=== PATIENT | female | born 1950 | race Caucasian/White ===

== ENCOUNTER 2017-09-14 12:14 | Inpatient (IN) | payer BC, MEDICARE, OTHER ==
[2017-09-14] MEDS: IOHEXOL 300 MG/ML 100ML VIAL. IV (12:45)
[2017-09-14 12:52] LABS: BILIRUBIN,URINE NEGATIVE (NEG); CLARITY,URINE CLEAR; COLOR,URINE YELLOW; GLUCOSE,URINE NEGATIVE (NEG); NITRITE,URINE NEGATIVE (NEG); PH,URINE 7.5; PROTEIN,URINE NEGATIVE (NEG-TRACE); UROBILINOGEN,URINE 0.2 mg/dL (0.2 mg/dL)
[2017-09-14 12:57] LABS: ADD MAN DIFF? NO
[2017-09-14] MEDS: IV NORMAL SALINE 1000ML BAG 1,000 ML IV ×3 (12:58→20:40)
[2017-09-14] MEDS ORDERED: CONTRAST GIVEN MC (13:00)
[2017-09-14 13:02] LABS: BACTERIA,URINE 0 /HPF (0-FEW); BASO # 0.1 x10^3/uL (0.0-0.2); BASO % 0 % (0-3); EOS % 0 % (0-3); HEMATOCRIT 43.3 % (36.0-47.0); HEMOGLOBIN 14.2 g/dL (12.0-15.5); LYMPH # 1.8 x10^3/uL (1.0-4.8); LYMPH % 12 % (24-48); MEAN CORPUSCULAR HEMOGLOBIN 27 pg (25-35); MEAN CORPUSCULAR HGB CONC 33 g/dL (31-37); MEAN CORPUSCULAR VOLUME 82 fL (79-100); MONO # 1.3 x10^3/uL (0.0-1.1); MONO % 8 % (0-9); NEUT # 12.4 x10^3uL (1.8-7.7); NEUT % 80 % (31-73); PLATELET COUNT 287 x10^3/uL (140-400); RBC,URINE 0 /HPF (0-2); RED BLOOD COUNT 5.28 x10^6/uL (3.50-5.40); RED CELL DISTRIBUTION WIDTH 13.5 % (11.5-14.5); SQUAMOUS EPITHELIAL CELL,UR FEW /LPF; WBC,URINE OCC /HPF (0-4); WHITE BLOOD COUNT 15.5 x10^3/uL (4.0-11.0)
[2017-09-14 13:09] LABS: ANION GAP 9 (6-14); BLOOD UREA NITROGEN 16 mg/dL (7-20); BUN/CREATININE RATIO 20 (6-20); CALCIUM 9.2 mg/dL (8.5-10.1); CARBON DIOXIDE 27 mmol/L (21-32); CHLORIDE 103 mmol/L (98-107); CREATININE 0.8 mg/dL (0.6-1.0); GFR 71.8; GLUCOSE 129 mg/dL (70-99); POTASSIUM 3.4 mmol/L (3.5-5.1); SODIUM 139 mmol/L (136-145)
[2017-09-14 13:14] LABS: ALBUMIN 3.6 g/dL (3.4-5.0); ALK PHOS 126 U/L (46-116); ALT (SGPT) 27 U/L (14-59); AST (SGOT) 23 U/L (15-37); LIPASE 58 U/L (73-393); TOTAL BILIRUBIN 0.7 mg/dL (0.2-1.0); TOTAL PROTEIN 7.2 g/dL (6.4-8.2)
[2017-09-14 14:00] LABS: TROPONINI < 0.017 ng/mL (0.000-0.055)
[2017-09-14] MEDS ORDERED: fentaNYL PF VIAL 100 MCG/2 ML VIAL IV (14:45)
[2017-09-14] MEDS ORDERED: ONDANSETRON PF 4 MG/2 ML VIAL. IV (14:45)
[2017-09-14] MEDS: CIPROFLOXACIN 400MG PREMIX 200 ML IV (15:13)
[2017-09-14] MEDS: RIVAROXABAN 10 MG TABLET. PO (16:36)
[2017-09-14] MEDS: ACETAMINOPHEN 325 MG TABLET. PO ×3 (16:42→23:23)
[2017-09-14] MEDS: PIPERACILLIN/TAZOBACTAM 3.375 GM in IV NORMAL SALINE 50ML 50 ML IV ×2 (18:13→23:23)
[2017-09-14] MEDS: FLECAINIDE ACETATE 50 MG TABLET. PO (20:39)
[2017-09-15 05:17] LABS: BASO % 0 % (0-3); EOS % 0 % (0-3); HEMATOCRIT 39.7 % (36.0-47.0); HEMOGLOBIN 12.9 g/dL (12.0-15.5); LYMPH # 1.7 x10^3/uL (1.0-4.8); LYMPH % 10 % (24-48); MEAN CORPUSCULAR HEMOGLOBIN 27 pg (25-35); MEAN CORPUSCULAR HGB CONC 33 g/dL (31-37); MEAN CORPUSCULAR VOLUME 83 fL (79-100); MONO # 1.2 x10^3/uL (0.0-1.1); MONO % 7 % (0-9); NEUT # 14.1 x10^3uL (1.8-7.7); NEUT % 83 % (31-73); PLATELET COUNT 262 x10^3/uL (140-400); RED BLOOD COUNT 4.82 x10^6/uL (3.50-5.40); RED CELL DISTRIBUTION WIDTH 13.4 % (11.5-14.5); WHITE BLOOD COUNT 17.1 x10^3/uL (4.0-11.0)
[2017-09-15 05:29] LABS: ADD MAN DIFF? YES
[2017-09-15] MEDS: IV NORMAL SALINE 1000ML BAG 1,000 ML IV (05:41)
[2017-09-15] MEDS: PIPERACILLIN/TAZOBACTAM 3.375 GM in IV NORMAL SALINE 50ML 50 ML IV ×4 (05:41→23:46)
[2017-09-15] MEDS: ACETAMINOPHEN 325 MG TABLET. PO ×4 (05:43→21:48)
[2017-09-15 09:19] LABS: % BANDS 3 % (0-9); % LYMPHS 22 % (24-48); % MONOS 3 % (0-10); % SEGS 72 % (35-66); PLT ESTIMATE ADEQUATE (ADEQUATE)
[2017-09-15] MEDS: POTASSIUM CHLORIDE 20 MEQ TABLET.ER. PO (10:00)
[2017-09-15] MEDS: FLECAINIDE ACETATE 50 MG TABLET. PO ×2 (10:02→21:00)
[2017-09-15] MEDS: POTASSIUM CL 20MEQ D5-0.45NACL 1,000 ML IV ×2 (10:15→20:00)
[2017-09-15] MEDS: LACTOBACILLUS RHAMNOSUS GG 1 CAPSULE. PO ×2 (11:26→21:00)
[2017-09-15] MEDS: ANTI-COAG MONITOR BY PHARMACY. MC (13:59)
[2017-09-15] MEDS: RIVAROXABAN 10 MG TABLET. PO (17:12)
[2017-09-16] MEDS: ACETAMINOPHEN 325 MG TABLET. PO ×3 (03:54→17:51)
[2017-09-16] MEDS: PIPERACILLIN/TAZOBACTAM 3.375 GM in IV NORMAL SALINE 50ML 50 ML IV ×3 (06:29→17:55)
[2017-09-16 07:03] LABS: HEMATOCRIT 38.2 % (36.0-47.0); HEMOGLOBIN 12.5 g/dL (12.0-15.5); MEAN CORPUSCULAR HEMOGLOBIN 27 pg (25-35); MEAN CORPUSCULAR HGB CONC 33 g/dL (31-37); MEAN CORPUSCULAR VOLUME 83 fL (79-100); PLATELET COUNT 253 x10^3/uL (140-400); RED BLOOD COUNT 4.61 x10^6/uL (3.50-5.40); RED CELL DISTRIBUTION WIDTH 13.7 % (11.5-14.5); WHITE BLOOD COUNT 14.6 x10^3/uL (4.0-11.0)
[2017-09-16 07:17] LABS: ANION GAP 9 (6-14); BLOOD UREA NITROGEN 6 mg/dL (7-20); CALCIUM 8.6 mg/dL (8.5-10.1); CARBON DIOXIDE 25 mmol/L (21-32); CHLORIDE 109 mmol/L (98-107); CREATININE 0.8 mg/dL (0.6-1.0); GFR 71.8; GLUCOSE 119 mg/dL (70-99); POTASSIUM 3.3 mmol/L (3.5-5.1); SODIUM 143 mmol/L (136-145)
[2017-09-16] MEDS: LACTOBACILLUS RHAMNOSUS GG 1 CAPSULE. PO ×2 (10:18→21:41)
[2017-09-16] MEDS: POTASSIUM CL 20MEQ D5-0.45NACL 1,000 ML IV (10:18)
[2017-09-16] MEDS: FLECAINIDE ACETATE 50 MG TABLET. PO ×2 (10:19→21:38)
[2017-09-16] MEDS: ANTI-COAG MONITOR BY PHARMACY. MC (11:57)
[2017-09-16] MEDS: RIVAROXABAN 10 MG TABLET. PO (17:52)
[2017-09-16] MEDS: POTASSIUM CHLORIDE 20 MEQ TABLET.ER. PO (17:53)
[2017-09-17] MEDS: PIPERACILLIN/TAZOBACTAM 3.375 GM in IV NORMAL SALINE 50ML 50 ML IV ×3 (00:14→11:57)
[2017-09-17] MEDS: ACETAMINOPHEN 325 MG TABLET. PO ×2 (00:14→06:13)
[2017-09-17 03:59] LABS: ADD MAN DIFF? NO
[2017-09-17 04:02] LABS: BASO % 0 % (0-3); EOS # 0.1 x10^3/uL (0.0-0.7); EOS % 1 % (0-3); HEMATOCRIT 38.5 % (36.0-47.0); HEMOGLOBIN 12.8 g/dL (12.0-15.5); LYMPH # 1.7 x10^3/uL (1.0-4.8); LYMPH % 14 % (24-48); MEAN CORPUSCULAR HEMOGLOBIN 27 pg (25-35); MEAN CORPUSCULAR HGB CONC 33 g/dL (31-37); MEAN CORPUSCULAR VOLUME 82 fL (79-100); MONO % 8 % (0-9); NEUT # 9.2 x10^3uL (1.8-7.7); NEUT % 76 % (31-73); PLATELET COUNT 285 x10^3/uL (140-400); RED BLOOD COUNT 4.68 x10^6/uL (3.50-5.40); RED CELL DISTRIBUTION WIDTH 13.5 % (11.5-14.5); WHITE BLOOD COUNT 12.1 x10^3/uL (4.0-11.0)
[2017-09-17 06:17] LABS: ANION GAP 9 (6-14); BLOOD UREA NITROGEN 6 mg/dL (7-20); CALCIUM 8.9 mg/dL (8.5-10.1); CARBON DIOXIDE 25 mmol/L (21-32); CHLORIDE 109 mmol/L (98-107); CREATININE 0.8 mg/dL (0.6-1.0); GFR 71.8; GLUCOSE 105 mg/dL (70-99); POTASSIUM 3.5 mmol/L (3.5-5.1); SODIUM 143 mmol/L (136-145)
[2017-09-17] MEDS: LACTOBACILLUS RHAMNOSUS GG 1 CAPSULE. PO (08:16)
[2017-09-17] MEDS: FLECAINIDE ACETATE 50 MG TABLET. PO (08:18)
[2017-09-17] MEDS: ANTI-COAG MONITOR BY PHARMACY. MC (10:53)
== END 2017-09-17 15:05 | disposition home or self-care (01) | DRG 392 ==
LOC: ER 12:14 → 6 SOUTH 14:09
DX: K57.20 Diverticulitis of large intestine with perforation and abscess without bleeding (principal); I48.0 Paroxysmal atrial fibrillation; D72.829 Elevated white blood cell count, unspecified; E87.6 Hypokalemia; K57.90 Diverticulosis of intestine, part unspecified, without perforation or abscess without bleeding; I48.2 Chronic atrial fibrillation; Z79.01 Long term (current) use of anticoagulants; Z80.0 Family history of malignant neoplasm of digestive organs; Z82.49 Family history of ischemic heart disease and other diseases of the circulatory system
CPT/HCPCS: 36415; 74177; 80048; 80053; 81001; 83690; 84484; 85007; 85025; 85027; 87086; 93005; 96361; 96365; 99285; 99285-25; J0744; J2543; J3490; J7030; Q9967